=== PATIENT | male | born 1990 | race American Indian/Alaskan Native ===

== ENCOUNTER 2018-01-07 01:57 | Emergency (ER) | payer BC, OTHER ==
[2018-01-07 02:05] VITALS: BP 137/76; PULSE 61; TEMP 97.6; O2SAT 99
--- NOTE | 2018-01-07 02:24 | C.PDOC ---
History Of Present Illness 27 y/o male presents to ED for complaints of dental pain s/p tooth extraction yesterday. Patients states he did not take any pain medications and is unable to eat due to pain. Denies any other physical complaints. Time Seen by Provider: 01/07/18 02:08 Chief Complaint (Nursing): Dental Pain History Per: Patient History/Exam Limitations: no limitations Current Symptoms Are (Timing): Gone Recent travel outside of the [place]: No Past Medical History Reviewed: Historical Data, Nursing Documentation, Vital Signs Vital Signs: Last Vital Signs Temp 97.6 F 01/07/18 02:01 Pulse 61 01/07/18 02:01 Resp 18 01/07/18 03:19 BP 137/76 01/07/18 02:01 Pulse Ox 99 01/07/18 04:03 - Medical History PMH: No Chronic Diseases Surgical History: No Surg Hx Family History: States: Unknown Family Hx - Social History Hx Tobacco Use: No Hx Alcohol Use: No Hx Substance Use: No - Immunization History Hx Tetanus Toxoid Vaccination: No Hx Influenza Vaccination: No Hx Pneumococcal Vaccination: No Review Of Systems Constitutional: Negative for: Fever, Chills ENT: Positive for: Other (Dental pain ) Gastrointestinal: Negative for: Nausea, Vomiting, Abdominal Pain, Diarrhea Skin: Negative for: Rash Neurological: Negative for: Weakness, Numbness Physical Exam - Physical Exam Appears: Well, Non-toxic, No Acute Distress Skin: Normal Color, Warm, Dry, No Rash, Other (No facial swelling ) Head: Atraumatic, Normacephalic Eye(s): bilateral: Normal Inspection, PERRL, EOMI Oral Mucosa: Moist Teeth: Other (Poor dental hygiene;minimal tenderness to left lower molar, no swelling; no erythema; no bleeding or swelling of left lower posterior molar/ wisdom tooth extracted area) Neck: Supple, Other (No neck swelling ) Chest: Symmetrical, No Tenderness Cardiovascular: Rhythm Regular Respiratory: Normal Breath Sounds, No Decreased Breath Sounds, No Rales, No Rhonchi, No Wheezing Extremity: Normal ROM Extremity: Bilateral: Atraumatic, Normal Color And Temperature, Normal ROM Neurological/Psych: Oriented x3, Normal Speech Gait: Steady ED Course And Treatment O2 Sat by Pulse Oximetry: 99 (RA) Pulse Ox Interpretation: Normal Progress Note: Administered Motrin. Upon re-evaluation Patient is feeling better, is medically stable, and requires no further treatment in the ED at this time. Counseling was provided to patient and all questions were answered regarding diagnosis and need for follow up with dentist. There is agreement to discharge plan. Return if symptoms persist or worsen. 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 - Scribe Statement The provider has reviewed the documentation as recorded by the Bryanibjulio De La Fuente All medical record entries made by the Bryanibjulio were at my direction and personally dictated by me. I have reviewed the chart and agree that the record accurately reflects my personal performance of the history, physical exam, medical decision making, and the department course for this patient. I have also personally directed, reviewed, and agree with the discharge instructions and disposition.
[2018-01-07 03:20] VITALS: RESP 18
== END 2018-01-07 03:14 | disposition home or self-care (01) ==
LOC: C.ER 01:57
DX: K08.89 Other specified disorders of teeth and supporting structures (principal); K08.409 Partial loss of teeth, unspecified cause, unspecified class

== ENCOUNTER 2018-01-07 15:52 | Emergency (ER) | payer BC, OTHER ==
--- NOTE | 2018-01-07 16:01 | C.PDOC ---
History Of Present Illness 27 y/o male patient with a PSHx of a dental extraction on 01/06 presents to the ER with a new onset left facial swelling since this morning. Patient states that pain is relieved with Motrin. There are no other associated symptoms. Patient also reports that the dental office that did the extraction has moved since the procedure. NEW ONSET L FACIAL SWELLING SINCE THIS MORNING. seen 01/07 for post extraction () paiN, RELIEVED W MOTRIN. PS DENTAL OFFICE THAT DID EXTRACTION MOVED SINCE PROCEDURE ON 01/06. NO OTHER ASSOC SX EXAM HEENT L FACIAL SWELL, MOD. NO ERYTHEMA MOUTH Poor dental hygiene;minimal tenderness to left lower molar, no swelling; no erythema; no bleeding or swelling of left lower posterior molar/wisdom tooth extracted area REMAINDER NEG Chief Complaint (Nursing): Dental Pain History Per: Patient History/Exam Limitations: no limitations Onset/Duration Of Symptoms: Hrs Current Symptoms Are (Timing): Still Present Past Medical History Reviewed: Historical Data, Nursing Documentation, Vital Signs Vital Signs: Last Vital Signs Temp 98.6 F 01/07/18 16:06 Pulse 80 01/07/18 16:06 Resp 18 01/07/18 16:06 BP 129/74 01/07/18 16:06 Pulse Ox 99 01/07/18 16:06 Family History: States: Unknown Family Hx - Social History Hx Tobacco Use: No Hx Alcohol Use: No Hx Substance Use: No - Immunization History Hx Tetanus Toxoid Vaccination: No Hx Influenza Vaccination: No Hx Pneumococcal Vaccination: No Review Of Systems Except As Marked, All Systems Reviewed And Found Negative. Constitutional: Positive for: Other (Left face swelling ) ENT: Positive for: Other (Dental pain ) Physical Exam - Physical Exam Appears: Non-toxic, No Acute Distress Skin: Normal Color, Warm, Dry Head: Atraumatic, Normacephalic Eye(s): bilateral: Normal Inspection, PERRL, EOMI Ear(s): Bilateral: Normal Nose: Normal Oral Mucosa: Moist Tongue: Normal Appearing Gingiva: No Erythema, No Swelling, Tender (minimal tenderness to left lower molar. ), No Bleeding, No Other (no swelling og left lower posterior molar/ wisdom tooth extracted area) Throat: Normal Neck: Normal ROM, Supple Chest: Symmetrical, No Deformity Cardiovascular: Rhythm Regular Respiratory: Normal Breath Sounds, No Rales, No Rhonchi, No Wheezing Extremity: Normal ROM (x4) Pulses: Left Radial: Normal, Right Radial: Normal Neurological/Psych: Oriented x3, Normal Speech ED Course And Treatment Progress Note: medications: Amoxcillin 500mg Disposition Counseled Patient/Family Regarding: Diagnosis, Need For Followup, Rx Given - Disposition Referrals: YOUR,DENTIST [Other] Disposition: HOME/ ROUTINE Disposition Time: 16:19 Condition: IMPROVED Prescriptions: Amoxicillin 875 mg PO BID #20 tab Instructions: Dental Pain (DC) Forms: [employer] (Pashto) - Clinical Impression Clinical Impression: Toothache, Facial swelling - Scribe Statement The provider has reviewed the documentation as recorded by the Jacinta Marley Do Provider Attestation: All medical record entries made by the Scribe were at my direction and personally dictated by me. I have reviewed the chart and agree that the record accurately reflects my personal performance of the history, physical exam, medical decision making, and the department course for this patient. I have also personally directed, reviewed, and agree with the discharge instructions and disposition.
[2018-01-07 16:07] VITALS: BP 129/74; PULSE 80; RESP 18; TEMP 98.6; O2SAT 99
== END 2018-01-07 16:35 | disposition home or self-care (01) ==
LOC: C.ER 15:52
DX: K08.89 Other specified disorders of teeth and supporting structures (principal); R22.0 Localized swelling, mass and lump, head